=== PATIENT | male | born 1970 | race Caucasian/White ===

== ENCOUNTER 2020-11-29 09:03 | Outpatient (REF) | payer OTHER, SELFPAY ==
[2020-11-29 11:56] LABS: Creatinine Urine 15.38 mg/dL; Microalbumin Urine < 5.0 mg/L
[2020-11-29 11:57] LABS: Alanine Aminotransferase 20 U/L (0-40); Albumin Level 4.3 g/dL (3.5-5.0); Alkaline Phosphatase 46 U/L (39-117); Anion Gap 11 (12-20); Aspartate Amino Transferase 21 U/L (5-37); Bilirubin Total 0.6 mg/dL (0.0-1.0); Blood Urea Nitrogen 9 mg/dL (9-16); Carbon Dioxide 26 mmol/L (22-29); Chloride 100 mmol/L (96-108); Cholesterol 198 mg/dL; Estimated Glomerular Filt Rate > 60; Glucose Fasting 103 mg/dL (60-99); HDL Cholesterol 63 mg/dL; LDL Cholesterol Calculated 120 mg/dl; Potassium 4.5 mmol/L (3.3-5.1); Sodium 132 mmol/L (135-145); Total Protein 7.4 g/dL (6.5-8.0); Triglycerides 78 mg/dL
[2020-11-29 12:17] LABS: Prostate Specific Antigen Scr 0.63 ng/mL (<0.05-4.0); TSH reflex Free T4 2.42 uIU/mL (0.32-4.0)
== END 2020-11-29 09:04 | disposition home or self-care (01) ==
LOC: HO.WFDLDS 09:03
PROVIDERS: Visit Provider Family Medicine
DX: Z00.00 Encounter for general adult medical examination without abnormal findings (principal); I10 Essential (primary) hypertension; Z12.5 Encounter for screening for malignant neoplasm of prostate
CPT/HCPCS: 36415; 80053; 80061; 82043; 84153; 84443

== ENCOUNTER → 2021-02-21 13:36 | Outpatient (BNVA) | payer OTHER, SELFPAY | PROVIDERS: PCP Family Medicine; Visit Provider Nurse Practitioner Family ==

== ENCOUNTER 2021-03-28 07:16 | Day surgery (SDC) | payer OTHER, SELFPAY ==
--- NOTE | 2021-03-26 14:18 | P.CONAN_ITS ---
Documented by User: Dariana Gutierrez 03/26/21 14:18 HPI - Anesthesia Eval Consult details Narrative: 50yo M for Colonoscopy [facility] Active Problems Active Problems: All Active Problems (Updated 03/21/21 @ 09:24 by Layla Castañeda) Elevated blood pressure reading (Acute) Laboratory examination ordered as part of a routine general medical examination (Acute) Hypertension (Acute) Annual physical exam (Acute) Elevated fasting blood sugar (Acute) Screening for prostate cancer (Acute) Screening for colon cancer (Acute) Past Medical History Medical History HTN (hypertension) Family History Family History Father Hypertension Mother Hypertension Surgical History Surgical History No significant past surgical history Social History Social History Alcohol intake: current Alcohol intake frequency: 0-2 drinks per day Advance Directives: No Advance Directives Information Provided: Yes Meds Allergies Allergy/AdvReac Type Severity Reaction Status Date / Time No Known Allergies Allergy Verified 03/21/21 09:20 Exam Exam Date and Time: March 26, 2021 1418 Assessment and Plan Assessment Anesthesia Assessment: Chart Reviewed Documented by User: Tiesha Wise 03/28/21 07:59 [facility] Past Medical History Medical History HTN (hypertension) Family History Family History Father Hypertension Mother Hypertension Surgical History Surgical History No significant past surgical history Social History Social History Alcohol intake: current Alcohol intake frequency: 0-2 drinks per day Advance Directives: No Advance Directives Information Provided: Yes Meds Allergies Allergy/AdvReac Type Severity Reaction Status Date / Time No Known Allergies Allergy Verified 03/21/21 09:20 Exam Airway Mallampati Class: I TM Dist: >3cm Neck ROM: Full
[2021-03-28 08:04] VITALS: BP 138/97; PULSE 72; RESP 18; TEMP 36.4; O2SAT 99; BMI 26.6
[2021-03-28] MEDS: Lactated Ringers 1,000 ML 100 ML IVCONT (08:20)
--- NOTE | 2021-03-28 08:35 | MHC.SHP ---
Pre-Procedural Eval Section B Chief Complaint: Screening Relevant Family History (Specify if Yes): No Relevant Social History: None Present Medications: see Short Stay Collaborative assessment Medical History: Significant History (HTN) History of Previous Operations: No relevant previous surgery Allergies: Allergies Allergy/AdvReac Type Severity Reaction Status Date / Time No Known Allergies Allergy Verified 03/28/21 08:01 Review of Systems Sugical H&P ROS: Negative: Constitution, Cardiovascular, Respiratory, Neurological, Psychiatric, Hem-Onc, Allergic/Immunologic, Gastrointestinal, Genitourinary, Musculoskeletal, Integumentary, Endocrine and Eyes/Ears/Nose/Throat Exam Surgical H&P Exam: Normal: HEENT, Normal: Heart, Normal: Lungs, Normal: Extremities, Normal: Abdomen, Normal: Skin and Normal: Neurological Plan Diagnosis/Plan: Unchanged I have reviewed the history and physical and performed a pertinent physical examination on my patient. No changes have occurred unless specified.
--- NOTE | 2021-03-28 08:36 | P.BOP_ITS ---
Brief Operative Note Date of Service: 03/28/21 Pre-op diagnosis: colon screening Post-op diagnosis: same Procedure: see op note Surgeon: Callie Mercer MD Anesthesia: MAC Was an Ground Service Equipment Mechanic used for this Procedure?: No Estimated blood loss (mL): 0 Condition: stable Disposition: PACU
--- NOTE | 2021-03-28 08:36 | W.PM.OPN ---
Operative Note Operative Note Date of Service: 03/28/21 Narrative: Operative Information Procedure Description: Colonoscopy COLONOSCOPY Instrument: Olympus variable stiffness pediatric scope 190L Colonoscopy Monitoring: Vital signs and clinical assessment, continuous EKG monitoring, Pulse oximetry, Carbon Dioxide monitoring and blood pressure monitoring were done throughout the procedure. Colon withdrawal time was 9 minutes. Procedure: The patient was placed in the left lateral decubitis position and pre-procedure medications were administered. After a digital rectal examination of the ano-rectum, the video colonoscope was inserted into the rectum and advanced through the colon to the cecum/TI. The colonoscope was slowly withdrawn in a retrograde panoramic fashion and the colon mucosa was carefully examined including a retroflexed view of the rectum. Findings and interventions are described below. Procedure Difficulty:easy, mild pressure needed to get to cecum Findings: Terminal Ileum-normal Cecum:normal Ascending Colon: normal Transverse Colon -normal Descending Colon:normal Sigmoid Colon: normal Rectum: Retroflexion with small internal hemorrhoids, grade II, x 2 sessile polyps 7-8 mm removed with forceps Anorectum - normal Colon preparation: D[place]ott Bowel Preparation Scale Right colon; 3 Transverse colon: 3 Left colon; 2 (0 = Unprepared colon segment with mucosa not seen due to solid stool that cannot be cleared. 1 = Portion of mucosa of the colon segment seen, but other areas of the colon segment not well seen due to staining, residual stool and/or opaque liquid. 2 = Minor amount of residual staining, small fragments of stool and/or opaque liquid, but mucosa of colon segment seen well. 3 = Entire mucosa of colon segment seen well with no residual staining, small fragments of stool or opaque liquid) Impression and Post Procedure Diagnosis: polyps internal hemorrhoids Plan: High fiber diet leaflet Avoid straining at stool, epsom salts and sitz bath, anusol supps or cream as needed Repeat Colonoscopy in 5 years if adenomatous polyps, 10 yrs if hyperplastic or earlier if clinically indicated Above findings were reviewed with the patient and relevant handouts were provided if indicated.
[2021-03-28 09:00] VITALS: BP 109/70; PULSE 55; RESP 15; TEMP 36.6; O2SAT 96
[2021-03-28 09:12] VITALS: BP 113/81; PULSE 70; RESP 18; O2SAT 97
--- NOTE | 2021-03-28 09:25 | P.CONAN_ITS ---
[facility] [place] Active Problems Active Problems: All Active Problems (Updated 03/21/21 @ 09:24 by Layla martinez) Elevated blood pressure reading (Acute) Laboratory examination ordered as part of a routine general medical examination (Acute) Hypertension (Acute) Annual physical exam (Acute) Elevated fasting blood sugar (Acute) Screening for prostate cancer (Acute) Screening for colon cancer (Acute) Past Medical History Medical History HTN (hypertension) Family History Family History Father Hypertension Mother Hypertension Surgical History Surgical History No significant past surgical history Social History Social History Alcohol intake: current Alcohol intake frequency: 0-2 drinks per day Patient Tobacco Use Status: Former Tobacco user Use of substances other than those prescribed or required for medical reasons: Yes Are you DNR?: No Advance Directives: No Advance Directives Information Provided: Yes Meds Allergies Allergy/AdvReac Type Severity Reaction Status Date / Time No Known Allergies Allergy Verified 03/28/21 08:01 Active Medications: Current Medications Generic Name Dose Route Start Last Admin Trade Name Freq PRN Reason Stop Dose Admin Lactated Ringer's 1,000 mls @ 100 mls/hr 03/28/21 07:45 03/28/21 09:16 Lr IVCONT Infused .Q10H CAROL Infusion Exam Exam Date and Time: March 28, 2021 0925 Height,Weight and Vital Signs: Height 5 ft 9 in Weight 81.647 kg Last Vital Signs Temp 97.9 F 03/28/21 09:00 Pulse 70 03/28/21 09:12 Resp 18 03/28/21 09:12 BP 113/81 03/28/21 09:12 Pulse Ox 97 03/28/21 09:12 Airway Mallampati Class: II TM Dist: >3cm Neck ROM: Full
== END 2021-03-28 09:28 | disposition home or self-care (01) ==
PROVIDERS: PCP Family Medicine; Visit Provider Internal Medicine Gastroenterology
PROC: 0DJD8ZZ Inspection of Lower Intestinal Tract, Via Natural or Artificial Opening Endoscopic (ICD-10-PCS; CPT 45378; principal; 2021-03-28 08:30)
DX: Z12.11 Encounter for screening for malignant neoplasm of colon (principal); K62.1 Rectal polyp; K64.1 Second degree hemorrhoids; I10 Essential (primary) hypertension; Z87.891 Personal history of nicotine dependence
CPT/HCPCS: 45380; 88305

== ENCOUNTER 2022-04-07 09:18 | Outpatient (REF) | payer OTHER, SELFPAY ==
--- NOTE | ~2022-04-07 | XR_ITS ---
EXAMINATION: XR CHEST CLINICAL INFORMATION: Acute bronchitis COMPARISON: None TECHNIQUE: 2 views of the chest were obtained. FINDINGS: Minor interstitial infiltrates at the lung bases noted which could reflect pneumonitis or be chronic. There are no prior studies. No pleural effusions. Heart and pulmonary vessels normal. XR/XR chest 2V IMPRESSION: Query early pneumonitis which follow-up therefore is advised.
== END 2022-04-07 09:19 | disposition home or self-care (01) ==
LOC: HO.HMGCX 09:18
PROVIDERS: PCP Family Medicine; Visit Provider Internal Medicine
DX: J20.9 Acute bronchitis, unspecified (principal)
CPT/HCPCS: 71046

== ENCOUNTER 2022-04-21 10:15 | Outpatient (REF) | payer OTHER, SELFPAY ==
--- NOTE | ~2022-04-21 | XR_ITS ---
EXAMINATION: XR CHEST CLINICAL INFORMATION: Acute bronchitis COMPARISON: Previous chest x-ray 04/07/2022 TECHNIQUE: Frontal view of the chest was obtained. FINDINGS: The cardiac and mediastinal contours are stable. The lungs are clear without evidence of pneumonia. There is no pleural effusion. Bony structures are unremarkable. XR/XR chest 1V IMPRESSION: Unremarkable examination.
[2022-04-21 11:06] LABS: Hematocrit 46.8 % (42.0-52.0); Mean Corpuscular HGB Conc 34.2 g/dl (31.0-36.0); Mean Corpuscular Hemoglobin 31.1 pg (27.0-33.0); Mean Corpuscular Volume 91.1 fL (80.0-98.0); Mean Platelet Volume 9.9 fL (9.4-12.4); Platelet Count 352 X10*3/uL (160-400); Red Blood Count 5.14 X10*6/uL (4.60-5.80); Red Cell Distribution Width 13.2 % (11.0-16.0); White Blood Count 8.2 X10*3/uL (4.8-10.8)
[2022-04-21 11:57] LABS: Alanine Aminotransferase 18 U/L (0-40); Albumin Level 4.3 g/dL (3.5-5.0); Alkaline Phosphatase 66 U/L (39-117); Anion Gap 16 (12-20); Aspartate Amino Transferase 17 U/L (5-37); Bilirubin Total 0.5 mg/dL (0.0-1.0); Blood Urea Nitrogen 10 mg/dL (9-16); Calcium 9.5 mg/dL (8.4-10.2); Carbon Dioxide 24 mmol/L (22-29); Chloride 103 mmol/L (96-108); Estimated Glomerular Filt Rate > 60; Glucose Random 111 mg/dL (60-115); Sodium 138 mmol/L (135-145); Total Protein 7.8 g/dL (6.5-8.0)
== END 2022-04-21 10:16 | disposition home or self-care (01) ==
LOC: HO.XRAY 10:15
PROVIDERS: PCP Family Medicine; Visit Provider Hospitalist
DX: Z00.00 Encounter for general adult medical examination without abnormal findings (principal); J20.9 Acute bronchitis, unspecified
CPT/HCPCS: 36415; 71045; 80053; 85027